=== PATIENT | female | born 1985 | race Caucasian/White ===

== ENCOUNTER 2023-02-17 22:51 | Emergency (ER) | payer OTHER ==
[~2023-02-17] VITALS: Ht 167.6 cm; Wt 81.0 kg
[~2023-02-17 22:51] MED LIST: ATIVAN0.5 MG PO; CYMBALTA60 MG PO; GABAPENTIN400 M2 PO; HYDROXYCHLOR200 MG PO; IBUPROFEN600 MG PO; MULTIVITAMIN AD1 CHW; NEURONTIN600 MG PO; PERCOCET1 TA4 PO; TIZANIDINE4 MG PO; XTAMPZA ER9 MG; ZOLPIDEM10 MG PO
[2023-02-17] MEDS ORDERED: TYLENOL # 31 TA1 PO (23:34)
[2023-02-18 00:23] VITALS: BP 134/89
== END 2023-02-18 00:35 | disposition home or self-care (01) | DRG 159 ==
LOC: ED 22:51
DX: K04.7 Periapical abscess without sinus (principal)
CPT/HCPCS: J0561